=== PATIENT | male | born 1950 | race Caucasian/White ===

== ENCOUNTER → 2017-03-13 | Outpatient (CLI) | payer MEDICARE, OTHER ==
[~2017-03-13] MED LIST: ASPI325T32 PO; ASPI81TA3 PO; BENA10TA48 PO; FAMO20TA18 PO; HYDR25SU23 PR; LORA1TAB PO; METO-407 PO; PRAV40TA76 PO; ZOLP5TAB7 PO
--- NOTE | 2017-03-13 13:53 | RADRPT ---
PROCEDURE: XR right shoulder. CLINICAL INDICATION: Pain TECHNIQUE: AP, Internal and external rotation views of the right shoulder were performed. COMPARISON: None. FINDINGS: There are moderate degenerative changes involving the acromioclavicular joint with joint space narro wing and osteophytes. There is normal osseous mineralization and alignment. No acute fracture is identified. The soft tis sues are unremarkable. IMPRESSION: Moderate degenerative changes of the acromioclavicular joint. RPTAT: EE Physician Trudy Date Time Electronically viewed and signed by River Bustamante Physician on 03/13/2017 13:52 RA/
--- NOTE | 2017-03-13 13:54 | RADRPT ---
PROCEDURE: Right humerus x-ray CLINICAL INDICATION: pain TECHNIQUE: AP and lateral views of the humerus were obtained. COMPARISON: None FINDINGS: There is normal mineralization. No acute fracture or dislocation is seen. There is a prominent spur projecting off the olecranon at the expected location of the triceps inser tion. There is no significant soft tissue swelling. RPTAT: AA IMPRESSION: Prominent olecranon spur. The right humerus is unremarkable. Physician Trudy Date Time Electronically viewed and signed by Physician Trudy on 03/13/2017 13:53 RA/
== END | disposition home or self-care (01) ==
LOC: RAD 12:27
PROVIDERS: ATTEND Internal Medicine
DX: M75.81 Other shoulder lesions, right shoulder (principal); M19.011 Primary osteoarthritis, right shoulder

== ENCOUNTER 2017-03-15 18:34 | Emergency (ER) | payer MEDICARE, OTHER ==
[~2017-03-15] VITALS: Ht 182.9 cm; Wt 116.0 kg
[~2017-03-15 18:34] MED LIST changes: -HYDR25SU23 PR
[2017-03-15 19:04] VITALS: Ht 182.9 cm; Wt 116.0 kg
[2017-03-15] MEDS ORDERED: SOD CHLORIDE 0.9% 1,000 ML IV STA (20:03)
[2017-03-15 20:23] LABS: ADD SCAN DIFF NO
[2017-03-15 20:26] LABS: BASOPHIL # 0.1 10^3/ul (0.0-0.1); BASOPHILS % 0.9 % (0.0-2.0); EOSINOPHILS # 0.2 10^3/ul (0.0-0.5); EOSINOPHILS % 2.5 % (0.0-7.0); HEMATOCRIT 46.1 % (42.0-52.0); HEMOGLOBIN 15.5 g/dl (14.0-18.0); LYMPHOCYTES # 2.8 10^3/ul (0.8-2.9); MEAN CORPUSCULAR HEMOGLOBIN 30.7 pg (29.0-33.0); MEAN CORPUSCULAR HGB CONC 33.6 g/dl (32.0-37.0); MEAN CORPUSCULAR VOLUME 91.3 fl (82.0-101.0); MEAN PLATELET VOLUME 10.6 fl (7.4-10.4); MONOCYTE # 0.9 10^3/ul (0.3-0.9); MONOCYTES % 10.4 % (0.0-11.0); NEUTROPHIL # 4.7 10^3/ul (1.6-7.5); NEUTROPHILS % 53.9 % (39.0-77.0); PLATELET COUNT 259 10^3/UL (140-415); RED BLOOD COUNT 5.05 10^6/ul (4.70-6.10); WHITE BLOOD COUNT 8.7 10^3/ul (4.8-10.8)
[2017-03-15 20:41] LABS: INR 1.59; PARTIAL THROMBOPLASTIN TIME 26.3 Sec (25.0-35.0); PROTIME 19.1 Sec (12.2-14.2); PT RATIO 1.5
[2017-03-15 20:46] LABS: ALBUMIN 4.8 g/dl (3.3-4.9); ALBUMIN/GLOBULIN RATIO 1.54; BILIRUBIN,INDIRECT 0.2 mg/dl (0-1.1); BILIRUBIN,TOTAL 0.2 mg/dl (0.2-1.3); CALCIUM 9.8 mg/dl (8.4-10.2); CREATININE 0.94 mg/dl (0.61-1.24); POTASSIUM 4.7 mmol/L (3.5-5.1); TOTAL PROTEIN 7.9 g/dl (6.1-8.1)
[2017-03-15 21:16] LABS: ADD UMIC YES; UR BILIRUBIN (Dip) NEGATIVE (NEGATIVE); UR BLOOD (Dip) NEGATIVE (NEGATIVE); UR CLARITY CLEAR (CLEAR); UR COLOR YELLOW (YELLOW); UR GLUCOSE (Dip) NEGATIVE (NEGATIVE); UR KETONES (Dip) NEGATIVE (NEGATIVE); UR LEUKOCYTE ESTERASE (Dip) NEGATIVE (NEGATIVE); UR NITRITE (Dip) NEGATIVE (NEGATIVE); UR TOTAL PROTEIN (Dip) TRACE (NEGATIVE); UR UROBILINOGEN (Dip) 0.2 E.U./dL (0.1-1.0)
[2017-03-15 21:25] LABS: UR BACTERIA OCCASIONAL; URINE RBCS 0-2 /HPF (0)
[2017-03-15 21:26] LABS: UR URIC ACID CRYSTAL MODERATE
--- NOTE | 2017-03-15 22:01 | RADRPT ---
PROCEDURE: CT scan of the abdomen and pelvis without IV contrast. CLINICAL INDICATION: 67-year-old male with abdominal pain. TECHNIQUE: Thin section axial, coronal and sagittal images were performed through the abdomen and pelvis without contrast. Radiation Dose: CTDI: 22.8 and DLP: 1289 One or more of the following dose reduction techniques were used: - Automated exposure control. - Adjustment of the mA and/or kV according to patient size. Use of iterative reconstruction technique. COMPARISON: Chest x-ray 11/09/2016 06:18 a.m. FINDINGS: Soft tissues: Normal. Lungs and pleural spaces: The lungs are free of infiltrate. No pulmonary nodule or pleural effusion is noted. The lungs are mildly hyperinflated. Heart: Normal. The liver, common bile duct and gallbladder: There are multiple lesions in the right and left lobe o f the liver which have the appearance of cysts. There is a small amount of sludge and/or small ston es in the dependent portion of the gallbladder. No gallbladder wall thickening is noted. Gastrointestinal: There is a left inguinal hernia which contains fat. The vermiform appendix is unr emarkable. There is fecal material in the ascending and transverse colon. There is no evidence of diverticulitis. Pancreas: Normal. Kidneys, bladder and adrenal glands : There is a 1.9 cm benign cyst in the lower portion of the uppe r third of the right kidney. There is a there is a 6.6 mm nonobstructive nephrolith in the lower th ird of the right kidney. There is a 0.5 mm nonobstructive nephrolith dorsal to this in the lower thi rd of the right kidney. There is a 0.5 mm nonobstructive nephrolith suspected in the dorsal middle t hird of the right kidney. There is a 6.5 mm subcapsular lesion which is likely a proteinaceous or h emorrhagic cyst in the ventral aspect of the lower portion of the upper third of the right kidney. There is a there is a 1.6 cm subcapsular cyst off the lateral lower third of the left kidney. The u rinary bladder is normal. No bladder stone is identified. There is a 1.1 cm cysts off of the lower pole of the left kidney. Spleen: The spleen is normal. Lymph nodes: No enlarged periportal, retroperitoneal and mesenteric lymph nodes are identified. The re is diastasis rectus. Reproductive system and pelvis : Normal. Bony elements: There are degenerative osteophytes in the thoracic and lumbar spine. No acute bony f racture or bone metastasis is identified. There is severe degenerative changes in the articular fac ets at at L4-5 and L5-S1. Vasculature: There are vascular calcifications in the abdominal aorta, common iliac arteries and com mon femoral arteries. IMPRESSION: 1. There are multiple benign hepatic and renal cysts. An ultrasound is recommended to follow-up and further characterize a 1.6 x 1.7 see subcapsular cyst arising from the lateral lower third of the l eft kidney with Hounsfield units measuring 39 which is indeterminate. Also evaluate the 6.5 mm subc apsular lesion along the ventral aspect of the lower portion of the upper third of the right kidney. 2. There are nonobstructive nephrolith in both kidneys. The largest measures 6.6 mm and lies in th e lower third of the right kidney. 3. Diastasis rectus. 4. Sludge in small gallstones are noted in the gallbladder. 5. Atherosclerotic vascular disease. 6. Osteoarthritis of the thoracic and lumbosacral spine with severe degenerative facet arthropathy at L4-5 and L5-S1. 7. Left inguinal hernia which contains fat but no intra-abdominal. 8. Normal vermiform appendix. No evidence of diverticulosis or diverticulitis. RPTAT:AAJJ Physician Ghazala Date Time Electronically viewed and signed by Zuhair Ibrahim Physician on 03/15/2017 22:01 MISTY/
--- NOTE | 2017-03-15 22:33 | ERD ---
ER Documentation Chief Complaint Date/Time DATE: 03/15/17 TIME: 22:32 Chief Complaint rectal bleeding 1 hour ago due to hemmorhoids, pt taking coumadin HPI This 67-year-old male patient reports rectal bleeding on Coumadin with history of hemorrhoids. Patient reports that he has had bleeding hemorrhoids in the past with the amount of blood in toilet today was significant. Patient reports that he is currently bleeding and has a towel in his underwear to catch the blood. Patient denies any abdominal pain, history of gastric ulcer, patient denies any hematuria, any bleeding of gums while brushing his teeth. Patient reports he takes Coumadin 5 mg as prescribed for atrial fibrillation, reports normal prothrombin times. Denies chest pain, shortness of breath, dizziness, or palpitations. ROS All systems reviewed and are negative except as per history of present illness. Medications Home Meds Active Scripts Hydrocortisone Acetate (Anusol-Hc) 25 Mg Supp.rect, 1 SUPP [place] BID Y for HEMORROID PAIN/ITCHING, #12 SUPP.RECT Prov:RENETTA UGARTE 03/15/17 Aspirin (Aspirin) 325 Mg Tablet., 325 MG PO DAILY for 30 Days Prov:JEREMIAH MARIE MD 01/02/16 Reported Medications Aspirin* (Aspirin* Chew) 81 Mg Tab.chew, 81 MG PO DAILY, TAB.CHEW 01/02/16 Zolpidem Tartrate* (Zolpidem Tartrate*) 5 Mg Tablet, 5 MG PO QHS Y for INSOMNIA , #30 TAB 01/02/16 Lorazepam* (Lorazepam*) 1 Mg Tablet, 1 MG PO DAILY Y for ANXIETY, #30 TAB 01/02/16 Famotidine* (Famotidine*) 20 Mg Tablet, 20 MG PO DAILY, #30 TAB 01/02/16 Pravastatin Sodium* (Pravastatin Sodium*) 40 Mg Tablet, 40 MG PO HS, TAB 01/02/16 Benazepril Hcl* (Benazepril Hcl*) 10 Mg Tablet, 10 MG PO DAILY, #30 TAB 01/02/16 Metoprolol Tartrate* (Lopressor*) 100 Mg Tablet, 150 MG PO BID, #60 TAB 01/02/16 Allergies Allergies: Coded Allergies: No Known Allergy (Unverified , 01/02/16) PMhx/Soc History of Surgery: Yes (SHOULDER, TONSIL) Hx Cardiac Disorders: Yes (HTN) Hx Psychiatric Problems: Yes (ANXIETY) Hx Miscellaneous Medical Probl: Yes (HIGH CHOLESTEROL) Hx Alcohol Use: No Hx Substance Use: No Hx Tobacco Use: No Smoking Status: Never smoker Physical Exam Vitals Vitals stable, triage notes reviewed Physical Exam Const: Well-appearing, no acute distress Head: Atraumatic Eyes: Normal Conjunctiva, no pallor PERRLA, EOMI ENT: Normal External Ears, Nose and Mouth. Neck: Resp: Clear to auscultation bilaterally, no rales wheezes or rhonchi Cardio: Regular rate and rhythm, no murmurs Abd: Soft, non tender, non distended Rectal exam: Dried bright red blood noted on patient's underwear. Sphincter with external nonthrombosed flat hemorrhoids; sphincter tone normal, rectal goodson without palpable mass. Prostate smooth normal size occult blood positive , gross blood present Back: No midline or flank tenderness Ext: Neur: Awake and alert Psych: Normal Mood and Affect Results 24 hrs Laboratory Tests Test 03/15/17 20:20 03/15/17 20:45 03/15/17 21:46 White Blood Count 8.710^3/ul Red Blood Count 5.0510^6/ul Hemoglobin 15.5g/dl Hematocrit 46.1% Mean Corpuscular Volume 91.3fl Mean Corpuscular Hemoglobin 30.7pg Mean Corpuscular Hemoglobin Concent 33.6g/dl Red Cell Distribution Width 13.0% Platelet Count 26871^3/UL Mean Platelet Volume 10.6fl Neutrophils % 53.9% Lymphocytes % 32.0% Monocytes % 10.4% Eosinophils % 2.5% Basophils % 0.9% Nucleated Red Blood Cells % 0.0/100WBC Neutrophils # 4.710^3/ul Lymphocytes # 2.810^3/ul Monocytes # 0.910^3/ul Eosinophils # 0.210^3/ul Basophils # 0.110^3/ul Nucleated Red Blood Cells # 0.010^3/ul Prothrombin Time 19.1Sec Prothrombin Time Ratio 1.5 INR International Normalized Ratio 1.59 Activated Partial Thromboplast Time 26.3Sec Sodium Level 144mmol/L Potassium Level 4.7mmol/L Chloride Level 107mmol/L Carbon Dioxide Level 25mmol/L Anion Gap 17 Blood Urea Nitrogen 24mg/dl Creatinine 0.94mg/dl Glucose Level 99mg/dl Calcium Level 9.8mg/dl Total Bilirubin 0.2mg/dl Direct Bilirubin 0.00mg/dl Indirect Bilirubin 0.2mg/dl Aspartate Amino Transf (AST/SGOT) 27IU/L Alanine Aminotransferase (ALT/SGPT) 38IU/L Alkaline Phosphatase 39IU/L Total Protein 7.9g/dl Albumin 4.8g/dl Globulin 3.10g/dl Albumin/Globulin Ratio 1.54 Lipase 118U/L Urine Color YELLOW Urine Clarity CLEAR Urine pH 6.0 Urine Specific [place] 1.025 Urine Ketones NEGATIVE Urine Nitrite NEGATIVE Urine Bilirubin NEGATIVE Urine Urobilinogen 0.2 E.U./dL Urine Leukocyte Esterase NEGATIVE Urine Microscopic RBC 0-2/HPF Urine Microscopic WBC 0-2/HPF Urine Epithelial Cells FEW Urine Uric Acid Crystals MODERATE Urine Bacteria OCCASIONAL Urine Hemoglobin NEGATIVE Urine Glucose NEGATIVE% Urine Total Protein TRACE Stool Occult Blood POSITIVE Current Medications Medications (Trade) Dose Ordered Sig/Abhishek Route PRN Reason Start Time Stop Time Status Last Admin Dose Admin Sodium Chloride (NS) 1,000 ml @ 1,000 mls/hr Q1H STAT IV 03/15/17 20:03 03/15/17 21:02 DC 03/15/17 20:43 Interpretation text CBC shows no evidence of hemorrhage or infection Chemistry shows no evidence of significant electrolyte abnormalities or renal insufficiency Liver function tests shows no evidence of acute biliary or hepatic dysfunction Coagulation study showed no concerning coagulpathy Stool for occult blood positive Procedures/MDM PROCEDURE: CT scan of the abdomen and pelvis without IV contrast. CLINICAL INDICATION: 67-year-old male with abdominal pain. TECHNIQUE: Thin section axial, coronal and sagittal images were performed through the abdomen and pelvis without contrast. Radiation Dose: CTDI: 22.8 and DLP: 1289 One or more of the following dose reduction techniques were used: - Automated exposure control. - Adjustment of the mA and/or kV according to patient size. Use of iterative reconstruction technique. COMPARISON: Chest x-ray 11/09/2016 06:18 a.m. FINDINGS: Soft tissues: Normal. Lungs and pleural spaces: The lungs are free of infiltrate. No pulmonary nodule or pleural effusion is noted. The lungs are mildly hyperinflated. Heart: Normal. The liver, common bile duct and gallbladder: There are multiple lesions in the right and left lobe of the liver which have the appearance of cysts. There is a small amount of sludge and/or small stones in the dependent portion of the gallbladder. No gallbladder wall thickening is noted. Gastrointestinal: There is a left inguinal hernia which contains fat. The vermiform appendix is unremarkable. There is fecal material in the ascending and transverse colon. There is no evidence of diverticulitis. Pancreas: Normal. Kidneys, bladder and adrenal glands : There is a 1.9 cm benign cyst in the lower portion of the upper third of the right kidney. There is a there is a 6.6 mm nonobstructive nephrolith in the lower third of the right kidney. There is a 0.5 mm nonobstructive nephrolith dorsal to this in the lower third of the right kidney. There is a 0.5 mm nonobstructive nephrolith suspected in the dorsal middle third of the right kidney. There is a 6.5 mm subcapsular lesion which is likely a proteinaceous or hemorrhagic cyst in the ventral aspect of the lower portion of the upper third of the right kidney. There is a there is a 1.6 cm subcapsular cyst off the lateral lower third of the left kidney. The urinary bladder is normal. No bladder stone is identified. There is a 1.1 cm cysts off of the lower pole of the left kidney. Spleen: The spleen is normal. Lymph nodes: No enlarged periportal, retroperitoneal and mesenteric lymph nodes are identified. There is diastasis rectus. Reproductive system and pelvis : Normal. Bony elements: There are degenerative osteophytes in the thoracic and lumbar spine. No acute bony fracture or bone metastasis is identified. There is severe degenerative changes in the articular facets at at L4-5 and L5-S1. Vasculature: There are vascular calcifications in the abdominal aorta, common iliac arteries and common femoral arteries. IMPRESSION: 1. There are multiple benign hepatic and renal cysts. An ultrasound is recommended to follow-up and further characterize a 1.6 x 1.7 see subcapsular cyst arising from the lateral lower third of the left kidney with Hounsfield units measuring 39 which is indeterminate. Also evaluate the 6.5 mm subcapsular lesion along the ventral aspect of the lower portion of the upper third of the right kidney. 2. There are nonobstructive nephrolith in both kidneys. The largest measures 6.6 mm and lies in the lower third of the right kidney. 3. Diastasis rectus. 4. Sludge in small gallstones are noted in the gallbladder. 5. Atherosclerotic vascular disease. 6. Osteoarthritis of the thoracic and lumbosacral spine with severe degenerative facet arthropathy at L4-5 and L5-S1. 7. Left inguinal hernia which contains fat but no intra-abdominal. 8. Normal vermiform appendix. No evidence of diverticulosis or diverticulitis. This 67-year-old male patient presents to emergency department for rectal bleeding. Patient on Coumadin, with history of hemorrhoids, patient denies pain , dizziness, shortness of breath. Patient denies easily bleeding or bleeding from gums with brushing his teeth. Rectal exam positive for bright red blood. Anal fissure, rectal abscess unlikely. Lower GI bleed, over anticoagulation ruled out with stable hemoglobin and hematocrit, pro time 1.9. CAT scan of abdomen and pelvis without IV contrast shows multiple benign hepatic and renal cysts with ultrasound recommended. Nonobstructive nephroliths in both kidneys. Diastases rectus, sludge and small gallstones are noted in the gallbladder, atherosclerotic vascular disease, osteoarthritis of the thorax and lumbar sacral spine with several degenerative facet arthropathy at L4-5, and L5-S1. Left inguinal hernia which contains fat but no intra-abdominal. Normal vermiform appendix no evidence of diverticulosis or diverticulitis. Patient's primary care physician Dr. Blayne Lerner called [phone], case discussed. Physician chooses not to admit will follow up for hemorrhoid treatment, patient stable at this time. Case discussed with supervising physician Dr. Marie. I feel the patient is stable for discharge at this time. Return to emergency department for shortness of breath or symptoms worsening then they are now. Outpatient follow-up with Dr. Lerner as discussed above. Physician instruction to call office in the morning for appointment. I have discussed results, examination findings, the treatment plan with the patient and family present prior to discharge. Indications for emergent reevaluation, side effects of medication were also discussed. All questions were answered. Patient verbalizes understanding and agrees with plan of care. Departure Diagnosis: Primary Impression: Rectal bleed Additional Impression: Bleeding internal hemorrhoids Condition: Stable Patient Instructions: Hemorrhoids Additional Instructions: Thank you for for coming to [facility] for your care today. Please ask your nurse or provider if you have questions about your care today and do not leave until all your questions have been answered. Please use any medications given as directed and follow-up with your doctor (or the doctor you were referred to) in the next 2-3 days. If you do not have a primary care doctor you may follow up at the [facility] [place] (listed below). You may also use motrin and tylenol as needed for fever and/or pain unless instructed otherwise by your provider or nurse. Indications for more urgent follow-up have been discussed, but you may return to the Emergency Department at ANY time for any worrisome or worsening symptoms. If you have abdominal pain, please know that no test or exam you received is perfect and you should follow up within 8 hours for continued pain. If you had any imaging studies today, such as an X-Ray or CT Scan, these studies will be reviewed later by a radiologist. You will be called if there are important findings that were not identified today, so make sure the contact information you provided at registration is correct. If you received any narcotic pain control medicine today, such as Vicodin, Morphine or Dilaudid, your coordination and judgment may be affected for a number of hours. Please do not drive or operate heavy machinery, and you may want someone to assist you at home. If you were given a prescription for narcotic medication, be aware that it is very addictive- use sparingly and only if necessary. RENETTA UGARTE Mar 15, 2017 22:33
[2017-03-15] MEDS ORDERED: HYDR25SU23 PR (23:28)
[2017-03-15 23:59] VITALS: BP 138/68; PULSE 68; RESP 18
== END 2017-03-16 | disposition home or self-care (01) ==
LOC: FTE 18:34
DX: K62.5 Hemorrhage of anus and rectum (principal); K64.8 Other hemorrhoids; I10 Essential (primary) hypertension; Z79.82 Long term (current) use of aspirin
CPT/HCPCS: 74176; 80053; 81001; 82270; 83690; 85025; 85610; 85730; 86850; 86900; 86901; J7030; 36415